=== PATIENT | male | born 1960 | race Caucasian/White ===

== ENCOUNTER 2017-05-12 11:57 | Emergency (ER) | payer OTHER ==
[~2017-05-12] VITALS: Ht 195.6 cm; Wt 113.8 kg
[2017-05-12 11:59] VITALS: BP 152/96; Ht 195.6 cm; Wt 113.8 kg
== END 2017-05-12 14:49 | disposition home or self-care (01) ==
LOC: ED 11:57
DX: A49.02 Methicillin resistant Staphylococcus aureus infection, unspecified site (principal); J34.0 Abscess, furuncle and carbuncle of nose; K13.0 Diseases of lips